=== PATIENT | male | born 1940 | race Caucasian/White ===

== ENCOUNTER 2020-07-23 10:29 | Emergency (ER) | payer OTHER ==
[2020-07-23 12:07] LABS: Absolute Lymphocytes (CBC) 0.7 K/uL (0.7-4.9); Hematocrit 41.7 % (39.6-49.0); Lymphocytes % 14.2 % (15.3-44.8); MPV 11.5 fL (7.6-11.3); RBC Red Blood Cell Count 4.54 M/uL (4.33-5.43)
[2020-07-23 12:15] LABS: Potassium 4.3 mmol/L (3.5-5.1)
--- NOTE | 2020-07-23 12:48 | RAD REPORT ---
EXAM DESCRIPTION: US - Extremity Venous Uni Ltd - 07/23/2020 12:36 pm CLINICAL HISTORY: Pain;Swelling COMPARISON: None. TECHNIQUE: Real-time sonographic evaluation of the right lower extremity deep venous systems was per formed. FINDINGS: Normal compressibility, flow augmentation, phasic flow and spontaneous flow are identified in the right lower extremity common femoral, superficial femoral, popliteal and posterior tibial vei ns. No intraluminal filling defects seen. IMPRESSION: No DVT in the right lower extremity.
--- NOTE | 2020-07-23 13:37 | EDPHYS ---
Physician Documentation [facility] Name: Carlos Osborne Age: 79 yrs Sex: Male : 1940 Arrival Date: 07/23/2020 Time: 10:32 Bed 13 Private MD: ED Physician Kings Ochoa HPI: 07/23 13:30 This 79 yrs old Male presents to ER via Ambulatory with complaints of Leg kdr Swelling. 13:30 The patient presents with decreased range of motion, swelling, tenderness. The kdr complaints affect the lateral aspect of right calf, right ankle, lateral aspect of right foot, right calf, right Achilles, right heel, medial aspect of right calf, medial aspect of right foot, right santoro, anterior aspect of right ankle and dorsum of right foot. Context: The problem was sustained at home, resulted from an unknown cause, Prior history of cellulitis/edema to both lower extremities, the patient can partially bear weight, the patient is able to ambulate, with mild difficulty. Onset: The symptoms/episode began/occurred gradually, 1 week(s) ago. Modifying factors: The symptoms are alleviated by nothing. the symptoms are aggravated by movement, weight bearing. Associated signs and symptoms: The patient has no apparent associated signs or symptoms. Treatment prior to arrival includes: no previous treatment. Severity of symptoms: At their worst the symptoms were mild, moderate, seems similar to prior episodes of cellulitis to the lower extremieis. The patient has experienced similar episodes in the past, a few times. The patient has not recently seen a physician. Historical: - Allergies: 10:37 No Known Allergies; iw - Home Meds: 10:41 finasteride 5 mg oral tab 1 tab once daily [Active]; losartan 100 mg oral tab 1 tab iw once daily [Active]; allopurinol 100 mg Oral tab [Active]; furosemide 80 mg Oral tab 1 tab once daily [Active]; Xarelto 20 mg oral tab 1 tab once daily [Active]; rosuvastatin 20 mg oral tab 1 tab once daily [Active]; omeprazole 40 mg Oral cpDR 1 cap once daily [Active]; - PMHx: 10:39 Back pain; Arthritis; Hypertension; Hyperlipidemia; iw - PSHx: 10:37 Cholecystectomy; iw - Immunization history:: Adult Immunizations not up to date. - Social history:: Smoking status: Patient denies any tobacco usage or history of. ROS: 13:30 Constitutional: Negative for fever, chills, and weight loss, Eyes: Negative for injury, kdr pain, redness, and discharge, ENT: Negative for injury, pain, and discharge, Neck: Negative for injury, pain, and swelling, Cardiovascular: Negative for chest pain, palpitations, and edema, Respiratory: Negative for shortness of breath, cough, wheezing, and pleuritic chest pain, Abdomen/GI: Negative for abdominal pain, nausea, vomiting, diarrhea, and constipation, Back: Negative for injury and pain, : Negative for injury, bleeding, discharge, and swelling, Skin: Negative for injury, rash, and discoloration, Neuro: Negative for headache, weakness, numbness, tingling, and seizure activity. Psych: Negative for depression, anxiety, suicide ideation, homicidal ideation, and hallucinations, Allergy/Immunology: Negative for hives, rash, and allergies, Endocrine: Negative for neck swelling, polydipsia, polyuria, polyphagia, and marked weight changes, Hematologic/Lymphatic: Negative for swollen nodes, abnormal bleeding, and unusual bruising. 13:30 MS/extremity: Positive for pain, swelling, tenderness, warmth, of the right leg and left leg. Exam: 16:58 Constitutional: This is a well developed, well nourished patient who is awake, alert, kdr and in no acute distress. Head/Face: Normocephalic, atraumatic. Eyes: Pupils equal round and reactive to light, extra-ocular motions intact. Lids and lashes normal. Conjunctiva and sclera are non-icteric and not injected. Cornea within normal limits. Periorbital areas with no swelling, redness, or edema. Neck: Trachea midline, no thyromegaly or masses palpated, and no cervical lymphadenopathy. Supple, full range of motion without nuchal rigidity, or vertebral point tenderness. No Meningismus. Chest/axilla: Normal chest wall appearance and motion. Nontender with no deformity. No lesions are appreciated. Cardiovascular: Regular rate and rhythm with a normal S1 and S2. No gallops, murmurs, or rubs. Normal PMI, no JVD. No pulse deficits. Respiratory: Lungs have equal breath sounds bilaterally, clear to auscultation and percussion. No rales, rhonchi or wheezes noted. No increased work of breathing, no retractions or nasal flaring. Abdomen/GI: Soft, non-tender, with normal bowel sounds. No distension or tympany. No guarding or rebound. No evidence of tenderness throughout. Back: No spinal tenderness. No costovertebral tenderness. Full range of motion. Neuro: Awake and alert, GCS 15, oriented to person, place, time, and situation. Cranial nerves II-XII grossly intact. Motor strength 5/5 in all extremities. Sensory grossly intact. Cerebellar exam normal. Normal gait. Psych: Awake, alert, with orientation to person, place and time. Behavior, mood, and affect are within normal limits. 16:58 Musculoskeletal/extremity: Pulses: are normal with no appreciated deficits, Sensation intact. 16:58 Skin: cellulitis, that is moderate, confluent, on the lateral aspect of right calf, right ankle, lateral aspect of right foot, right calf, right Achilles, medial aspect of right calf, right santoro, anterior aspect of right ankle and dorsum of right foot. Vital Signs: 10:36 BP 185 / 59; Pulse 52; Resp 20 S; Temp 99.0; Pulse Ox 98% on R/A; Weight 149.69 kg; iw Height 6 ft. 2 in. (187.96 cm); 11:50 BP 152 / 44; Pulse 42; Resp 17; Pulse Ox 96% on R/A; tw2 12:43 BP 152 / 47; Pulse 45; Resp 17; Pulse Ox 96% on R/A; tw2 13:33 BP 165 / 37; Pulse 42; Resp 18; Pulse Ox 96% on R/A; tw2 10:36 Body Mass Index 42.37 (149.69 kg, 187.96 cm) iw MDM: 13:30 Data reviewed: vital signs, nurses notes, lab test result(s), radiologic studies. kdr Counseling: I had a detailed discussion with the patient and/or guardian regarding: the historical points, exam findings, and any diagnostic results supporting the discharge/admit diagnosis, lab results, radiology results, the need for outpatient follow up. Special discussion: I discussed with the patient/guardian in detail that at this point there is no indication for admission to the hospital. It is understood, however, that if the symptoms persist or worsen the patient needs to return immediately for re-evaluation. 13:37 Patient medically screened. kdr 07/23 11:21 Order name: CBC with Diff; Complete Time: 13:27 sv 07/23 11:21 Order name: Basic Metabolic Panel; Complete Time: 13:27 sv 07/23 11:21 Order name: Blood Culture Adult (2) sv 07/23 11:21 Order name: IV Saline Lock; Complete Time: 12:24 sv 07/23 11:21 Order name: Labs collected and sent; Complete Time: 12:24 sv 07/23 11:59 Order name: US Extremity Venous Unilateral Ltd; Complete Time: 13:27 kdr Administered Medications: No medications were administered Disposition: 07/23/20 13:37 Discharged to Home. Impression: Peripheral edema, Cellulitis to right lower extremity. - Condition is Stable. - Discharge Instructions: Cellulitis, Adult, [id number], Edema, [id number]. - Prescriptions for Amoxicillin 875 mg Oral Tablet - take 1 tablet by ORAL route every 12 hours for 10 days; 20 tablet. - Medication Reconciliation Form, Thank You Letter, Antibiotic Education form. - Follow up: Private Physician; When: 2 - 3 days; Reason: If symptoms return, Further diagnostic work-up, Recheck today's complaints, Continuance of care, Re-evaluation by your physician. - Problem is new. - Symptoms have improved. Signatures: Dispatcher [employer] Jennifer Olivarez RN RN Kings Ochoa MD MD [facility] Hannah Ascencio RN RN iw Louann Crespo RN RN tw2 Corrections: (The following items were deleted from the chart) 14:40 13:37 07/23/2020 13:37 Discharged to Home. Impression: Peripheral edema, Cellulitis to tw2 right lower extremity. Condition is Stable. Forms are Medication Reconciliation Form, Thank You Letter, Antibiotic Education, Prescription Opioid Use. Follow up: Private Physician; When: 2 - 3 days; Reason: If symptoms return, Further diagnostic work-up, Recheck today's complaints, Continuance of care, Re-evaluation by your physician. Problem is new. Symptoms have improved. kdr
--- NOTE | 2020-07-23 13:37 | ER ---
Nurse's Notes [facility] Name: Carlos Osborne Age: 79 yrs Sex: Male : 1940 Arrival Date: 07/23/2020 Time: 10:32 Bed 13 Private MD: Diagnosis: Peripheral edema, Cellulitis to right lower extremity Presentation: 07/23 10:36 Chief complaint: Patient states: has had cellulitis in right leg X 1 week, and wagner feet iw swelling X 1 week. Coronavirus screen: At this time, the client does not indicate any symptoms associated with coronavirus-19. Ebola Screen: Patient negative for fever greater than or equal to 101.5 degrees Fahrenheit, and additional compatible Ebola Virus Disease symptoms Patient denies exposure to infectious person. Patient denies travel to an Ebola-affected area in the 21 days before illness onset. No symptoms or risks identified at this time. Initial Sepsis Screen: Does the patient meet any 2 criteria? No. Patient's initial sepsis screen is negative. Does the patient have a suspected source of infection? No. Patient's initial sepsis screen is negative. Risk Assessment: Do you want to hurt yourself or someone else? Patient reports no desire to harm self or others. Onset of symptoms was July 16, 2020. 10:36 Method Of Arrival: Ambulatory iw 10:36 Acuity: STEFAN 3 iw Historical: - Allergies: 10:37 No Known Allergies; iw - Home Meds: 10:41 finasteride 5 mg oral tab 1 tab once daily [Active]; losartan 100 mg oral tab 1 tab iw once daily [Active]; allopurinol 100 mg Oral tab [Active]; furosemide 80 mg Oral tab 1 tab once daily [Active]; Xarelto 20 mg oral tab 1 tab once daily [Active]; rosuvastatin 20 mg oral tab 1 tab once daily [Active]; omeprazole 40 mg Oral cpDR 1 cap once daily [Active]; - PMHx: 10:39 Back pain; Arthritis; Hypertension; Hyperlipidemia; iw - PSHx: 10:37 Cholecystectomy; iw - Immunization history:: Adult Immunizations not up to date. - Social history:: Smoking status: Patient denies any tobacco usage or history of. Screenin:46 Abuse screen: Denies threats or abuse. Nutritional screening: No deficits noted. tw2 Tuberculosis screening: No symptoms or risk factors identified. Fall Risk Secondary diagnosis (15 points) impaired mobility. Assessment: 10:45 General: Appears in no apparent distress. obese, well groomed, Behavior is calm, tw2 cooperative, appropriate for age. Pain: Complains of pain in right leg and left leg. Neuro: Level of Consciousness is awake, alert, obeys commands, Oriented to person, place, time, situation. Cardiovascular: Capillary refill < 3 seconds Patient's skin is warm and dry. Cardiovascular: Edema is 4+ to left midcalf, left ankle, left foot, right midcalf, right ankle and right foot. Respiratory: Airway is patent Respiratory effort is even, unlabored, Respiratory pattern is regular, symmetrical. GI: No signs and/or symptoms were reported involving the gastrointestinal system. Abdomen is round distended, obese. : No signs and/or symptoms were reported regarding the genitourinary system. EENT: No signs and/or symptoms were reported regarding the EENT system. Derm: No signs and/or symptoms reported regarding the dermatologic system. Derm: Reports increased redness and swelling to b/l LE. Musculoskeletal: Circulation, motion, and sensation intact. Range of motion: intact in all extremities. 11:21 Reassessment: Received VO from Pb SEN for labs. sv 11:45 Reassessment: Patient appears in no apparent distress at this time. No changes from tw2 previously documented assessment. Patient and/or family updated on plan of care and expected duration. Pain level reassessed. Patient is alert, oriented x 3, equal unlabored respirations, skin warm/dry/pink. 12:44 Reassessment: Patient appears in no apparent distress at this time. No changes from tw2 previously documented assessment. Patient and/or family updated on plan of care and expected duration. Pain level reassessed. Patient is alert, oriented x 3, equal unlabored respirations, skin warm/dry/pink. 13:34 Reassessment: Patient appears in no apparent distress at this time. No changes from tw2 previously documented assessment. Patient and/or family updated on plan of care and expected duration. Pain level reassessed. Patient is alert, oriented x 3, equal unlabored respirations, skin warm/dry/pink. 14:40 Reassessment: Patient appears in no apparent distress at this time. No changes from tw2 previously documented assessment. Patient and/or family updated on plan of care and expected duration. Pain level reassessed. Patient is alert, oriented x 3, equal unlabored respirations, skin warm/dry/pink. Vital Signs: 10:36 BP 185 / 59; Pulse 52; Resp 20 S; Temp 99.0; Pulse Ox 98% on R/A; Weight 149.69 kg; iw Height 6 ft. 2 in. (187.96 cm); 11:50 BP 152 / 44; Pulse 42; Resp 17; Pulse Ox 96% on R/A; tw2 12:43 BP 152 / 47; Pulse 45; Resp 17; Pulse Ox 96% on R/A; tw2 13:33 BP 165 / 37; Pulse 42; Resp 18; Pulse Ox 96% on R/A; tw2 10:36 Body Mass Index 42.37 (149.69 kg, 187.96 cm) iw ED Course: 10:32 Patient arrived in ED. ag5 10:37 Triage completed. iw 10:39 Arm band placed on. iw 10:42 Placed in gown. Bed in low position. Call light in reach. Side rails up X2. Pulse ox tw2 on. NIBP on. Warm blanket given. 11:34 Kings Ochoa MD is Attending Physician. kdr 11:45 Initial lab(s) drawn, by ma, sent to lab. First set of blood cultures drawn. Inserted tw2 saline lock: 20 gauge in right antecubital area, using aseptic technique. Blood collected. 11:49 Louann Crespo RN is Primary Nurse. tw2 12:15 Second set of blood cultures drawn. tw2 12:37 US Extremity Venous Unilateral Ltd In Process Unspecified. EDMS 14:40 No provider procedures requiring assistance completed. IV discontinued, intact, tw2 bleeding controlled, No redness/swelling at site. Pressure dressing applied. Administered Medications: No medications were administered Outcome: 13:37 Discharge ordered by . kdr 14:40 Discharged to home ambulatory. tw2 14:40 Condition: stable 14:40 Discharge instructions given to patient, Instructed on discharge instructions, follow up and referral plans. medication usage, Demonstrated understanding of instructions, follow-up care, medications, Prescriptions given X 1. 14:40 Patient left the ED. tw2 Signatures: Dispatcher [facility] Jennifer Rosenthal RN Kings Pretty MD MD kdr Hannah Ascencio RN RN iw Louann Crespo RN RN 2 Geneva Evans 5 Corrections: (The following items were deleted from the chart) 10:38 10:36 BP 185 / 59; Pulse 47bpm; Resp 20bpm; Spontaneous; Pulse Ox 94% RA; Temp 99.0F; iw 149.69 kg; Height 6 ft. 2 in.; BMI: 42.3; iw
[2020-07-24 08:30] VITALS: TEMP 99
[2020-07-24 08:31] VITALS: O2SAT 96
[2020-07-24 08:34] VITALS: BP 165/37
== END 2020-07-23 14:40 | disposition home or self-care (01) ==
LOC: ER 10:29
DX: L03.115 Cellulitis of right lower limb (principal); I10 Essential (primary) hypertension; E78.5 Hyperlipidemia, unspecified; Z79.01 Long term (current) use of anticoagulants
CPT/HCPCS: 36415; 80048; 85025; 87040; 93971; 99284

== ENCOUNTER 2022-09-02 09:29 | Inpatient (IN) | payer OTHER ==
--- OUTSIDE RECORDS SUMMARY | 2022-09-02 09:33 | XMS REPORT | Continuity of Care Document ---
:1940 Author Organization [facility] t Address [address] [id number] Care Team Providers Name Role Phone Harry Moar Attending Clinician Unavailable MIRLANDE FIGUEROA Attending Clinician Unavailable LAB90 Attending Clinician Unavailable JAVIER ABERNATHY Attending Clinician Unavailable BEATRIZ ALVAREZ Attending Clinician Unavailable Beatriz Alvarez MD Attending Clinician [phone] Jimmy-Mbayo_A_AH Attending Clinician Unavailable Jimmy-Mbayo_A_AH Admitting Clinician Unavailable Payers Payer Name Policy Type Policy Number Effective Date Expiration Date S susana [facility] 7 [id number] 2022 CLASSIC NO 00:00:00 PREMIUM R2T [place] [id number] 2020 [facility] 00:[facility]:[place] [id number] 2020 [facility] [place]:[facility]:[place] [id number] 2020 [facility] 00:[facility] [place] [id number] 2020 [facility] 00:[facility] - [facility] [id number] 2019 - [employer] 00:00:00 (MEDICARE REPLACEMENT/ADV ANTAGE - HMO) Problems Condition Condition Condition Status Onset Resolution Last Treating Co mments Source Name Details Category Date Date Treatment Clinician Date 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 8-05 Seyb old hyperplasi hyperplasi 00:00: - a without a without 00 Exte rna lower lower l urinary urinary tract tract symptoms symptoms Gout Gout Disease Active Sherie 8-05 Seybold 00:00: - 00 Externa l Hyperlipid Hyperlipid Disease Active Gregg kim emia emia 805 Seybold 00:00: - 00 Externa l 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 8-05 Seybold 00:00: - 00 Externa l Primary Primary Disease Active Sherie hypertensi hypertensi 8-05 Se ybold on on 00:00: - 00 Externa l 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 805 Seybold kidney kidney 00:00: - disease disease 00 Externa l PAF PAF Disease Active Sherie (paroxysma (paroxysma 805 Se ybold l atrial l atrial 00:00: - fibrillati fibrillati 00 Ex terna on) on) l Osteoarthr Osteoarthr Disease Active Gregg kim itis itis 805 Seybold 00:00: - 00 Externa l Chronic Chronic Disease Active Sherie midline midline 8-05 Seybold low back low back 00:00: - pain pain 00 Externa l 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 8-05 Seybold dermatitis dermatitis 00:00: - of both of both 00 Externa lower lower l extremitie extremitie s s [id number] Primary Problem Active Commo n osteoarthr Spirit itis - [facility] involving [facility] [id number] Chronic Problem Active Common gout of [id number] loc w Problem Active Com mon urin Spirit obs/LUTS - [facility] [id number] Other Problem Active Common chronic Spirit pain - [facility] [id number] Mixed Problem Active Common hyperlipid Spirit emia - [facility] Allergies, Adverse Reactions, Alerts Allergy Allergy Status Severity Reaction(s) Onset Inactive Treating Comm ents Source Name Type Date Date Clinician Diphenhy Propensi Active Other Sherie earl ty to 4 reaction( Seybol d adverse 00:00: s): - reaction 00 Unknown Externa s l Social History Social Habit Start Date Stop Date Quantity Comments Source History of [facility] - Tobacco Use [facility] Alcohol intake 2022-08-26 2022-08-26 Lifetime Sherie Cottoy bold - 00:00:00 00:00:00 non-drinker External (finding) Tobacco use and 2022-03-06 2022-03-06 Smokeless tobacco Ke néstor Seybold - exposure 00:00:00 00:00:00 non-user External Sex Ass[birth year] At [birth year] Sherie Cotto ybold - 00:00:00 00:00:00 External Smoking Status Start Date Stop Date Source Never smoked tobacco Sherie Esposito old - External Medications Ordered Filled Start Stop Current Ordering Indication Dosage Frequency Signature Comments Components Source Medication Medication Date Date Medication? Clinician (SIG) Name Name Benzonatate Yes [id number] 100mg Q.[id number] Take 1 Sherie 100 MG oral 1-25 [id number] capsule Seybold Capsule 00:00: 3D (100 mg - 00 total) by Externa mouth 3 l times daily as needed for cough FLUTICASONE Yes [id number] 50ug Use 1 K elsey PROPIONATE, 1-25 spray (50 Sey bold NASAL, 50 00:00: mcg total) - MCG/ACT 00 in each Externa nasal nostril l Suspension daily Azithromyci Yes [id number] Take 2 Sherie n 250 MG 1-25 tablets by Seybo ld oral Tablet 00:00: mouth on - 00 day 1 then Externa 1 tablet l by mouth daily for 4 days thereafter . Mupirocin 2021-08 Yes [id number] Apply 1 K elsey (BACTROBAN) 08-08 applicatio Se ybold 2 % apply 00:00: n - externally 00 topically Exte rna Ointment 3 times l daily Mupirocin 2021-08 Yes [id number] Apply 1 K elsey (BACTROBAN) 07 applicatio Se ybold 2 % apply 00:00: n - externally 00 topically Exte rna Ointment 3 times l daily Amoxicillin 2021-08- Yes [id number] 1{tbl} Take 1 Sherie -Pot 08-08 [id number] tablet by Billy Clavulanate 00:00: 05:59 mouth 2 - 875-125 MG 00 :00 times Externa oral Tablet daily for l 14 days Allopurinol Yes [id number] 100mg Take 1 Sherie 100 MG oral 9-15 tablet Seybol d Tablet 00:00: (100 mg - 00 total) by Externa mouth l daily Finasteride Yes [id number] 5mg Take 1 Sherie 5 MG oral 9-15 tablet (5 Seybo ld Tablet 00:00: mg total) - 00 by mouth Externa daily l Rivaroxaban Yes [id number] 20mg Take 1 Sherie (Xarelto) 9-15 tablet (20 Seyb old 20 MG oral 00:00: mg total) - Tablet 00 by mouth Externa daily with l food Olmesartan- Yes 1{tbl} Take 1 Ke lsey amLODIPine- 9-15 tablet by Matilda johnson HCTZ 00:00: mouth - 40-10-12.5 00 daily Externa MG oral l Tablet Oxybutynin Yes [id number] 5mg Take 1 Sherie Chloride 5 9-15 tablet (5 Seyb old MG oral 00:00: mg total) - TABLET SR 00 by mouth 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 a 24 HR daily l Rosuvastati Yes [id number] 20mg Take 1 Sherie n Calcium 9-15 tablet (20 Seyb old 20 MG oral 00:00: mg total) - Tablet 00 by mouth Externa daily l Allopurinol Yes [id number] 100mg Take 1 Sherie 100 MG oral 9-15 tablet Seybol d Tablet 00:00: (100 mg - 00 total) by Externa mouth l daily Finasteride Yes [id number] 5mg Take 1 Sherie 5 MG oral 9-15 tablet (5 Seybo ld Tablet 00:00: mg total) - 00 by mouth Externa daily l Rivaroxaban Yes [id number] 20mg Take 1 Sherie (Xarelto) 9-15 tablet (20 Seyb old 20 MG oral 00:00: mg total) - Tablet 00 by mouth Externa daily with l food Olmesartan- Yes 1{tbl} Take 1 Ke latoshaey amLODIPine- 9-15 tablet by Matilda alex HCTZ 00:00: mouth - 40-10-12.5 00 daily Externa MG oral l Tablet Oxybutynin Yes [id number] 5mg Take 1 Sherie Chloride 5 9-15 tablet (5 Seyb old MG oral 00:00: mg total) - TABLET SR 00 by mouth 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 a 24 HR daily l Rosuvastati Yes [id number] 20mg Take 1 Sherie n Calcium 9-15 tablet (20 Seyb old 20 MG oral 00:00: mg total) - Tablet 00 by mouth Externa daily l Amoxicillin Amoxicillin 2020-08- No 1{table BID Amoxicilli -Pot -Pot 0-18 10-28 t} n-Pot Clavulanate Clavulanate 00:00: 00:00 Clavulanat 875-125 MG 875-125 MG 00 :00 e 875-125 MG Finasteride Finasteride No 1{table QD Finasterid 5 MG 5 MG t} e 5 MG Rosuvastati Rosuvastati No 1{table QD Rosuvastat n Calcium n Calcium t} in Calcium 20 MG 20 MG 20 MG Allopurinol Allopurinol No 1{table QD Allopurino 100 MG 100 MG t} l 100 MG Rosuvastati Rosuvastati No Rosuvastat n Calcium n Calcium in Calcium 20 MG 20 MG 20 MG Allopurinol Allopurinol No Allopurino 100 MG 100 MG l 100 MG Olmesartan- Olmesartan- No 1{table QD Olmesartan amLODIPine- amLODIPine- t} -amLODIPin HCTZ HCTZ e-HCTZ 40-10-12.5 40-10-12.5 40-10-12.5 MG MG MG Xarelto 20 Xarelto 20 No 1{table QD Xarelto 20 MG MG t_with_ MG food} Oxybutynin Oxybutynin No 1{table QD Oxybutynin Chloride ER Chloride ER t} Chloride 5 MG 5 MG ER 5 MG Finasteride Finasteride No Finasterid 5 MG 5 MG e 5 MG Olmesartan- Olmesartan- No Olmesartan amLODIPine- amLODIPine- -amLODIPin HCTZ HCTZ e-HCTZ 40-10-12.5 40-10-12.5 40-10-12.5 MG MG MG Finasteride Finasteride No 1{table QD Finasterid 5 MG 5 MG t} e 5 MG Rosuvastati Rosuvastati No 1{table QD Rosuvastat n Calcium n Calcium t} in Calcium 20 MG 20 MG 20 MG Allopurinol Allopurinol No 1{table QD Allopurino 100 MG 100 MG t} l 100 MG Rosuvastati Rosuvastati No Rosuvastat n Calcium n Calcium in Calcium 20 MG 20 MG 20 MG Allopurinol Allopurinol No Allopurino 100 MG 100 MG l 100 MG Olmesartan- Olmesartan- No 1{table QD Olmesartan amLODIPine- amLODIPine- t} -amLODIPin HCTZ HCTZ e-HCTZ 40-10-12.5 40-10-12.5 40-10-12.5 MG MG MG Xarelto 20 Xarelto 20 No 1{table QD Xarelto 20 MG MG t_with_ MG food} Oxybutynin Oxybutynin No 1{table QD Oxybutynin Chloride ER Chloride ER t} Chloride 5 MG 5 MG ER 5 MG Finasteride Finasteride No Finasterid 5 MG 5 MG e 5 MG Olmesartan- Olmesartan- No Olmesartan amLODIPine- amLODIPine- -amLODIPin HCTZ HCTZ e-HCTZ 40-10-12.5 40-10-12.5 40-10-12.5 MG MG MG Xarelto 20 Xarelto 20 No 1{table QD Xarelto 20 MG MG t_with_ MG food} Rosuvastati Rosuvastati No 1{table QD Rosuvastat n Calcium n Calcium t} in Calcium 20 MG 20 MG 20 MG Ibuprofen Ibuprofen No Ibuprofen Olmesartan- Olmesartan- No 1{table QD Olmesartan amLODIPine- amLODIPine- t} -amLODIPin HCTZ HCTZ e-HCTZ 40-10-12.5 40-10-12.5 40-10-12.5 MG MG MG Olmesartan- Olmesartan- No Olmesartan amLODIPine- amLODIPine- -amLODIPin HCTZ HCTZ e-HCTZ 40-5-12.5 40-5-12.5 40-5-12.5 MG MG MG Allopurinol Allopurinol No Allopurino 100 MG 100 MG l 100 MG Allopurinol Allopurinol No 1{table QD Allopurino 100 MG 100 MG t} l 100 MG Finasteride Finasteride No 1{table QD Finasterid 5 MG 5 MG t} e 5 MG Olmesartan- Olmesartan- No Olmesartan amLODIPine- amLODIPine- -amLODIPin HCTZ HCTZ e-HCTZ 40-10-12.5 40-10-12.5 40-10-12.5 MG MG MG Finasteride Finasteride No Finasterid 5 MG 5 MG e 5 MG Rosuvastati Rosuvastati No Rosuvastat n Calcium n Calcium in Calcium 20 MG 20 MG 20 MG Oxybutynin Oxybutynin No 1{table QD Oxybutynin Chloride ER Chloride ER t} Chloride 5 MG 5 MG ER 5 MG Finasteride Finasteride No 1{table QD Finasterid 5 MG 5 MG t} e 5 MG Olmesartan- Olmesartan- No 1{table QD Olmesartan amLODIPine- amLODIPine- t} -amLODIPin HCTZ HCTZ e-HCTZ 40-10-12.5 40-10-12.5 40-10-12.5 MG MG MG Rosuvastati Rosuvastati No 1{table QD Rosuvastat n Calcium n Calcium t} in Calcium 20 MG 20 MG 20 MG Oxybutynin Oxybutynin No 1{table QD Oxybutynin Chloride ER Chloride ER t} Chloride 5 MG 5 MG ER 5 MG Xarelto 20 Xarelto 20 No 1{table QD Xarelto 20 MG MG t_with_ MG food} Allopurinol Allopurinol No 1{table QD Allopurino 100 MG 100 MG t} l 100 MG Finasteride Finasteride No 1{table QD Finasterid 5 MG 5 MG t} e 5 MG Olmesartan- Olmesartan- No 1{table QD Olmesartan amLODIPine- amLODIPine- t} -amLODIPin HCTZ HCTZ e-HCTZ 40-10-12.5 40-10-12.5 40-10-12.5 MG MG MG Rosuvastati Rosuvastati No 1{table QD Rosuvastat n Calcium n Calcium t} in Calcium 20 MG 20 MG 20 MG Oxybutynin Oxybutynin No 1{table QD Oxybutynin Chloride ER Chloride ER t} Chloride 5 MG 5 MG ER 5 MG Xarelto 20 Xarelto 20 No 1{table QD Xarelto 20 MG MG t_with_ MG food} Allopurinol Allopurinol No 1{table QD Allopurino 100 MG 100 MG t} l 100 MG Finasteride Finasteride No 1{table QD Finasterid 5 MG 5 MG t} e 5 MG Olmesartan- Olmesartan- No 1{table QD Olmesartan amLODIPine- amLODIPine- t} -amLODIPin HCTZ HCTZ e-HCTZ 40-10-12.5 40-10-12.5 40-10-12.5 MG MG MG Rosuvastati Rosuvastati No 1{table QD Rosuvastat n Calcium n Calcium t} in Calcium 20 MG 20 MG 20 MG Oxybutynin Oxybutynin No 1{table QD Oxybutynin Chloride ER Chloride ER t} Chloride 5 MG 5 MG ER 5 MG Xarelto 20 Xarelto 20 No 1{table QD Xarelto 20 MG MG t_with_ MG food} Allopurinol Allopurinol No 1{table QD Allopurino 100 MG 100 MG t} l 100 MG Finasteride Finasteride No Finasterid 5 MG 5 MG e 5 MG Allopurinol Allopurinol No Allopurino 100 MG 100 MG l 100 MG Rosuvastati Rosuvastati No Rosuvastat n Calcium n Calcium in Calcium 20 MG 20 MG 20 MG Xarelto 20 Xarelto 20 No 1{table QD Xarelto 20 MG MG t_with_ MG food} Olmesartan- Olmesartan- No 1{table QD Olmesartan amLODIPine- amLODIPine- t} -amLODIPin HCTZ HCTZ e-HCTZ 40-10-12.5 40-10-12.5 40-10-12.5 MG MG MG Oxybutynin Oxybutynin 2021- No 1{table QD Oxybutynin Chloride ER Chloride ER 01-30 t} Chloride 5 MG 5 MG 00:00 ER 5 MG :00 Vital Signs Vital Name Observation Time Observation Value Comments Source Systolic blood 2022-08-26 20:05:00 159 mm[Hg] Sherie Seybold - pressure External Diastolic blood 2022-08-26 20:05:00 71 mm[Hg] Roelse y Seybold - pressure External Heart rate 2022-08-26 20:05:00 46 /min Sherie Barboza eybold - External Body temperature 2022-08-26 20:05:00 37 Amira Meri ey Seybold - External Respiratory rate 2022-08-26 20:05:00 14 /min Meri ey Seybold - External Body height 2022-08-26 20:05:00 188 cm Sherie Barboza eybold - External Body weight 2022-08-26 20:05:00 118.389 kg Sherie Barboza eybold - External BMI 2022-08-26 20:05:00 33.51 kg/m2 Sherie Barboza eybold - External Oxygen saturation in 2022-08-26 20:05:00 95 /min Sherie Seybold - Arterial blood by External Pulse oximetry Systolic blood 2022-06-08 15:59:00 138 mm[Hg] Sherie Seybold - pressure External Diastolic blood 2022-06-08 15:59:00 54 mm[Hg] Roelse y Seybold - pressure External Heart rate 2022-06-08 15:59:00 66 /min Sherie Barboza eybold - External Body temperature 2022-06-08 15:59:00 37 Amira Meri fuentes Seybold - External Respiratory rate 2022-06-08 15:59:00 14 /min Meri fuentes Seybold - External Body height 2022-06-08 15:59:00 188 cm Sherie Barboza eybold - External Body weight 2022-06-08 15:59:00 131.543 kg Sherie Barboza eybold - External BMI 2022-06-08 15:59:00 37.23 kg/m2 Sherie Barboza eybold - External Oxygen saturation in 2022-06-08 15:59:00 99 /min Sherie Cottoybold - Arterial blood by External Pulse oximetry height 2021-11-26 10:30:00 74 [in_i] [facility] weight 2021-11-26 10:30:00 294.6 [lb_av] Common [facility] temperature 2021-11-26 10:30:00 97.3 [degF] Common S pirit [facility] bmi 2021-11-26 10:30:00 37.82 kg/m2 Common S pirit [facility] oximetry 2021-11-26 10:30:00 95 % Common S pirit [facility] respiratory rate 2021-11-26 10:30:00 16 /min Comm on [facility] blood pressure 2021-11-26 10:30:00 152 mm[Hg] [facility] - systolic [facility] blood pressure 2021-11-26 10:30:00 87 mm[Hg] [facility] - diastolic [facility] height 2021-08-26 10:00:00 74 [in_i] Common S [facility] weight 2021-08-26 10:00:00 283.9 [lb_av] [facility] temperature 2021-08-26 10:00:00 97.3 [degF] [facility] 2021-08-26 10:00:00 36.45 kg/m2 [facility] 2021-08-26 10:00:00 98 % [facility] S [facility] respiratory rate 2021-08-26 10:00:00 17 /min Comm on [facility] blood pressure 2021-08-26 10:00:00 148 mm[Hg] [facility] - systolic [facility] blood pressure 2021-08-26 10:00:00 76 mm[Hg] [facility] - diastolic [facility] height 2021-08-26 10:10:00 74 [in_i] [facility] 2021-08-26 10:10:00 283.9 [lb_av] [facility] temperature 2021-08-26 10:10:00 97.3 [degF] Common S pirit [facility] bmi 2021-08-26 10:10:00 36.45 kg/m2 Common S [facility] oximetry 2021-08-26 10:10:00 98 % Common S [facility] respiratory rate 2021-08-26 10:10:00 17 /min Comm on [facility] blood pressure 2021-08-26 10:10:00 148 mm[Hg] Common [facility] - systolic [facility] blood pressure 2021-08-26 10:10:00 76 mm[Hg] Common [facility] - diastolic [facility] height 2021-05-19 11:20:00 74 [in_i] Common S [facility] weight 2021-05-19 11:20:00 303.4 [lb_av] [facility] temperature 2021-05-19 11:20:00 97.7 [degF] [facility] bmi 2021-05-19 11:20:00 38.95 kg/m2 [facility] S [facility] oximetry 2021-05-19 11:20:00 92 % Common [facility] respiratory rate 2021-05-19 11:20:00 17 /min Comm on [facility] blood pressure 2021-05-19 11:20:00 145 mm[Hg] Common [facility] - systolic [facility] blood pressure 2021-05-19 11:20:00 65 mm[Hg] Common [facility] - diastolic [facility] height 2021-02-18 10:30:00 74 [in_i] Common S pirit [facility] weight 2021-02-18 10:30:00 302.4 [lb_av] [facility] temperature 2021-02-18 10:30:00 98.0 [degF] [facility] bmi 2021-02-18 10:30:00 38.82 kg/m2 Common S [facility] oximetry 2021-02-18 10:30:00 95 % Common S pirit [facility] respiratory rate 2021-02-18 10:30:00 19 /min Comm on [facility] blood pressure 2021-02-18 10:30:00 146 mm[Hg] Common [facility] - systolic [facility] blood pressure 2021-02-18 10:30:00 69 mm[Hg] Common [facility] - diastolic [facility] Procedures This patient has no known procedures. Encounters Start End Encounter Admission Attending Care Care Encounter Source Date/Time Date/Time Type Type Clinicians Facility Department ID 2022-03-25 Outpatient Mora, STLMLC STLMLC [id number] Common 10:30:02 Harry [facility] 2022-03-24 Outpatient Mora, STLMLC STLMLC [id number] Common 14:23:01 Harry [facility] 2021-11-27 Outpatient Mora, STLMLC STLMLC [id number] Common 09:17:01 Harry [facility] 2021-08-27 Outpatient Mora, STLMLC STLMLC [id number] Common 14:39:49 Harry [facility] 2021-08-27 Outpatient Mora, STLMLC STLMLC [id number] Common 13:28:02 Harry [facility] 2021-08-27 Outpatient Mora, STLMLC STLMLC [id number] Common 13:27:44 Harry 24761 [facility] 2021-08-27 Outpatient Mora, STLMLC STLMLC [id number] Common 12:54:44 Harry 36509 [facility] 2022-09-02 2022-09-02 Outpatient SHERIE FIGUEROA [id number] Sherie 13:00:00 13:00:00 MIRLANDE johnson 2022-09-02 2022-09-02 Outpatient SHERIE FIGUEROA [id number] Sherie 00:00:00 00:00:00 MIRLANDE johnson 2022-08-31 2022-08-31 Outpatient SHERIE FIGUEROA [id number] Sherie 00:00:00 00:00:00 MIRLANDE Seybol d 2022-08-26 2022-08-26 Outpatient LAB90 SHERIE HARO [id number] Sherie 14:45:00 14:45:00 Seybol d 2022-08-26 2022-08-26 Outpatient SHERIE ABERNATHY [id number] Sherie 14:00:00 14:00:00 JAVIER Seybol d 2022-06-08 2022-06-08 Outpatient SHERIE ALVAREZ [id number] Sherie 10:45:00 10:45:00 BEATRIZ Seybol d 2022-06-05 2022-06-05 Outpatient SHERIE ALVAREZ [id number] Sherie 10:00:00 10:00:00 BEATRIZ Seybol d 2022-05-29 2022-05-29 Outpatient SHERIE AVLAREZ [id number] Sherie 00:00:00 00:00:00 BEATRIZ Seybol d 2022-03-06 2022-03-06 Outpatient LAB90 SHERIE HARO [id number] Sherie 12:00:00 12:00:00 Seybol d 2022-03-06 2022-03-06 Office Gene Alvarez [id number] Sherie 11:00:00 11:45:00 Visit Beatriz Fernandez [id number] Se tiffanie Kauffman [id number] 2022-03-02 2022-03-02 Outpatient SHERIE ALVAREZ [id number] Sherie 10:45:00 10:45:00 BEATRIZ Seybol d 2022-02-26 2022-02-26 Outpatient SHERIE ALVAREZ [id number] Sherie 11:00:00 11:00:00 BEATRIZ Seybol d 2021-11-26 2021-11-26 OFFICE STLMLC STLMLC [id number] Co mmon 00:00:00 00:00:00 VISIT Alonzo ESTAB PT - [facility]I LEVEL 4 [facility] 2021-08-26 2021-08-26 OFFICE STLMLC STLMLC [id number] Co mmon 00:00:00 00:00:00 VISIT Spirit ESTAB PT - [facility] LEVEL 4 [facility] 2021-08-26 2021-08-26 SUB ANNUAL STLMLC STLMLC [id number] Common 00:00:00 00:00:00 MCR Spirit WELLNESS - [facility] VISIT [facility] 2021-06-02 2021-06-02 (TEL) STLMLC STLMLC [id number] Co mmon 00:00:00 00:00:00 Spirit - [facility] 2021-05-19 2021-05-19 OFFICE STLMLC STLMLC [id number] Co mmon 00:00:00 00:00:00 VISIT Spirit ESTAB PT - [facility] LEVEL 4 [facility] 2021-02-20 2021-02-20 (TEL) STLMLC STLMLC [id number] Co mmon 00:00:00 00:00:00 Spirit - [facility] 2021-02-18 2021-02-18 OFFICE STLMLC STLMLC [id number] Co mmon 00:00:00 00:00:00 VISIT Spirit ESTAB PT - [facility] LEVEL 4 [facility] 2020-11-20 2020-11-20 Outpatient STLMLC STLMLC [id number] Common 00:00:00 00:00:00 [facility] 2019-10-12 2019-10-12 Outpatient Jimmy-Mbayo VFP VFP [phone] [facility] 11:38:00 11:38:00 _A_AH [id number] Family Practic e 2019-10-12 2019-10-12 Outpatient Jimmy-Mbayo VFP VFP [id number] [facility] 11:38:00 11:38:00 _A_AH [id number] Family Practic e 2019-10-12 2019-10-12 Outpatient Jimmy-Mbayo VFP VFP [phone] [place] 11:38:00 11:38:00 _A_AH [id number] Family Practic e 2019-10-12 2019-10-12 Outpatient Jimmy-Mbayo VFP VFP [id number] [place] 11:38:00 11:38:00 _A_AH [id number] Family Practic e 2019-09-20 2019-09-20 Outpatient Jimmy-Mbayo VFP VFP [phone] [place] [address] 07:22:00 07:22:00 _A_ [id number] Family Practic e Results This patient has no known results.
[2022-09-02 10:06] LABS: Absolute Lymphocytes (CBC) 0.4 K/uL (0.7-4.9); Hematocrit 44.1 % (39.6-49.0); Lymphocytes % 3.9 % (15.3-44.8); MCV 86.4 fL (80-100); MPV 11.9 fL (7.6-11.3); RBC Red Blood Cell Count 5.11 M/uL (4.33-5.43)
[2022-09-02 10:24] LABS: Potassium 3.8 mmol/L (3.5-5.1)
[2022-09-02 10:26] LABS: Troponin High Sensitivity 99.8 pg/mL (<58.9)
--- NOTE | 2022-09-02 10:34 | ER ---
Nurse's Notes [facility] Name: Carlos Osborne Age: 81 yrs Sex: Male : 1940 Arrival Date: 09/02/2022 Time: 09:37 Bed 6 Private MD: Diagnosis: Weakness;Subsequent non-ST elevation (NSTEMI) myocardial infarction Presentation: 09/02 09:37 Chief complaint: Patient states: Not eating well, lethargic and weak for 2 weeks. Covid ll1 positive for 2 weeks. Denies N/V/D. + fever at home. Family reports cellulitis of the legs is slowly getting worse now. EMS states: BP 151/51, L BBB rate 45-50. Temp 100.7 axillary. 20 G R hand started, 250 ml NS bolus given. Initial O2 90% RA, 100% on 2 L NC. Tylenol 325 MG PO given en route. Coronavirus screen: Vaccine status: Patient reports being unvaccinated. Client denies travel out of the [place] in the last 14 days. fatigue, fever, Client presents with at least one sign or symptom that may indicate coronavirus-19. Standard/surgical mask placed on the client. Ebola Screen: Patient denies travel to an Ebola-affected area in the 21 days before illness onset. Initial Sepsis Screen: Does the patient meet any 2 criteria? Does the patient have a suspected source of infection? Yes: Productive cough/pneumonia. Risk Assessment: Do you want to hurt yourself or someone else? Patient reports no desire to harm self or others. Onset of symptoms was August 17, 2022. 09:37 Method Of Arrival: EMS ll1 09:37 Acuity: STEFAN 2 ll1 Triage Assessment: 09:38 General: Appears ill, Behavior is calm, cooperative, appropriate for age. General:. ll1 Pain: Denies pain. Neuro: Reports weakness. Respiratory: Reports cough that is. GI: Reports no appetite. Musculoskeletal: Circulation, motion, and sensation intact. Capillary refill < 3 seconds, Reports weakness in generalized. 12:00 General: Appears in no apparent distress. Behavior is calm, cooperative, appropriate eh3 for age. Pain: Denies pain. Neuro: Level of Consciousness is awake, alert, obeys commands, Oriented to person, place, time, situation, Reports weakness. Cardiovascular: Capillary refill < 3 seconds Patient's skin is warm and dry. Rhythm is sinus bradycardia. Respiratory: Reports cough that is non-productive, persistent Airway is patent Respiratory effort is even, unlabored, Respiratory pattern is regular, symmetrical. GI: Abdomen is round non-distended, Reports lack of appetite. : No signs and/or symptoms were reported regarding the genitourinary system. Derm: No signs and/or symptoms reported regarding the dermatologic system. Skin is pink, warm \T\ dry. Musculoskeletal: Circulation, motion, and sensation intact. Historical: - Allergies: 09:37 No Known Drug Allergies; ll1 - Home Meds: 14:08 allopurinol 100 mg Oral tab [Active]; finasteride 5 mg Oral tab 1 tab once daily eh3 [Active]; furosemide 80 mg Oral tab 1 tab once daily [Active]; losartan 100 mg Oral tab 1 tab once daily [Active]; omeprazole 40 mg Oral cpDR 1 cap once daily [Active]; rosuvastatin 20 mg Oral tab 1 tab once daily [Active]; Xarelto 20 mg Oral tab 1 tab once daily [Active]; - PMHx: 09:37 Arthritis; Back pain; Hyperlipidemia; Hypertension; ll1 - Immunization history:: Client reports having NOT received the Covid vaccine. - Social history:: Smoking status: Patient denies any tobacco usage or history of. Screenin:40 [facility] [place] ED Fall Risk Assessment (Adult) Confusion or Disorientation Yes (5 pts) ll1 Impaired Gait Yes (1 pt) Mobility Assist Device Used Yes (1 pt) Score/Fall Risk Level 3 or more points = High Risk Oriented to surroundings, Maintained a safe environment, Educated pt \T\ family on fall prevention, incl call for assistance when getting out of bed, Hourly rounding (assess needs \T\ fall precautionary measures) done, Used ambulatory aids as needed (educated on \T\ assisted with), Offered frequent toileting (1:1 observation). Abuse screen: Denies threats or abuse. Nutritional screening: No deficits noted. Tuberculosis screening: No symptoms or risk factors identified. Assessment: 10:26 Reassessment: Patient appears in no apparent distress at this time. No changes from ll1 previously documented assessment. Patient and/or family updated on plan of care and expected duration. Pain level reassessed. Patient is alert, oriented x 3, equal unlabored respirations, skin warm/dry/pink. 11:25 Reassessment: No changes from previously documented assessment. Patient and/or family ll1 updated on plan of care and expected duration. Pain level reassessed. Patient is alert, oriented x 3, equal unlabored respirations, skin warm/dry/pink. Son Carlos Osborne [phone] or [phone]. 12:00 General: Appears in no apparent distress. Behavior is calm, cooperative, appropriate eh3 for age. Pain: Denies pain. Neuro: Level of Consciousness is awake, alert, obeys commands, Oriented to person, place, time, situation. Neuro: Reports weakness. Cardiovascular: Capillary refill < 3 seconds Patient's skin is warm and dry. Respiratory: Airway is patent Respiratory effort is even, unlabored, Respiratory pattern is regular, symmetrical. GI: Abdomen is round non-distended, Reports lack of appetite. : No signs and/or symptoms were reported regarding the genitourinary system. EENT: No signs and/or symptoms were reported regarding the EENT system. Derm: 13:00 Reassessment: Patient appears in no apparent distress at this time. Patient and/or eh3 family updated on plan of care and expected duration. Pain level reassessed. Patient is alert, oriented x 3, equal unlabored respirations, skin warm/dry/pink. 13:58 Reassessment: Attempted to call report to 4th floor, nurse busy, will call back. eh3 14:00 Reassessment: Patient appears in no apparent distress at this time. Patient and/or 3 family updated on plan of care and expected duration. Pain level reassessed. Patient is alert, oriented x 3, equal unlabored respirations, skin warm/dry/pink. Vital Signs: 09:37 BP 150 / 53; Pulse 49; Resp 22; Temp 100.1(A); Pulse Ox 99% ; Weight 129.27 kg; Height ll1 6 ft. 2 in. (187.96 cm); Pain 0/10; 11:25 BP 131 / 42; Pulse 44; Resp 21; Pulse Ox 99% on 2 lpm NC; ll1 12:00 BP 111 / 40; Pulse 42; Resp 22; Pulse Ox 98% on 2 lpm NC; eh3 12:30 BP 141 / 51; Pulse 41; Resp 19; Pulse Ox 99% on 2 lpm NC; eh3 13:00 BP 139 / 45; Pulse 41; Resp 15; Pulse Ox 98% on 2 lpm NC; eh3 13:30 BP 142 / 46; Pulse 41; Resp 18; Pulse Ox 99% on 2 lpm NC; eh3 14:00 BP 126 / 47; Pulse 42; Resp 17; Pulse Ox 98% on 2 lpm NC; eh3 09:37 Body Mass Index 36.59 (129.27 kg, 187.96 cm) ll1 ED Course: 09:37 Patient arrived in ED. ph 09:37 Ten Guzman RN is Primary Nurse. ll1 09:37 Kings Ochoa MD is Attending Physician. kdr 09:40 Triage completed. ll1 09:40 Arm band placed on Patient placed in an exam room, on a stretcher. ll1 09:40 Patient has correct armband on for positive identification. Bed in low position. Call ll1 light in reach. Side rails up X2. Client placed on continuous cardiac and pulse oximetry monitoring. NIBP monitoring applied. bleach liquor maker on. 09:40 Maintain EMS IV. Dressing intact. Site clean \T\ dry. Gauge \T\ site: 20 G R hand. ll 1 10:01 EKG done, by ED staff, reviewed by Kings Ochoa MD. em1 10:28 XRAY Chest (1 view) In Process Unspecified. EDMS 10:33 Darek Nieves MD is Hospitalizing Provider. kdr 11:10 Tib Fib Right XRAY In Process Unspecified. EDMS 11:15 Second set of blood cultures drawn by nh. ll1 11:26 No provider procedures requiring assistance completed. ll1 12:00 Carmen Calderon, SUNNY is Primary Nurse. Primary Nurse role handed off by Ten Guzman, SUNNY 3 14:39 Patient admitted, IV remains in place. eh3 Administered Medications: 10:23 Drug: NS 0.9% 500 ml Route: IV; Rate: bolus; Site: right hand; ll1 11:05 Follow up: Response: No adverse reaction; IV Status: Completed infusion; IV Intake: ll1 1000ml 10:47 CANCELLED (Duplicate Order): foLIC Acid 1 mg PO once kdr 10:47 CANCELLED (Duplicate Order): Aspirin 81 mg PO once kdr 11:30 Drug: Rocephin - (cefTRIAXone) 1 grams Route: IVPB; Infused Over: 30 mins; Site: right ll1 hand; 12:00 Follow up: Response: No adverse reaction; IV Status: Completed infusion; IV Intake: [id number] Medication: 09:41 VIS not applicable for this client. ll1 Intake: 11:05 IV: 1000ml; Total: 1000ml. ll1 12:00 IV: 50ml; Total: 1050ml. 3 Outcome: 10:34 Decision to Hospitalize by Provider. kdr 14:39 Admitted to Tele accompanied by tech, via stretcher, room 427, with oxygen, Report 3 called to Kori 14:39 Condition: stable 14:39 Instructed on the need for admit. 14:39 Patient left the ED. 3 Signatures: Dispatcher [employer] EDMS Kings Ochoa MD MD kdr Martinez, Eric 1 Yanira Calderon RN RN Ten Guzman RN RN [facility] Carmen Calderon RN RN [facility] Corrections: (The following items were deleted from the chart) 09:43 09:37 Chief complaint: Patient states: Not eating well, lethargic and weak for 2 weeks. ll1 Covid positive for 2 weeks. Denies N/V/D. + fever at home. ll1 09:43 09:37 BP 151 / ???; Pulse 49bpm; Resp 18bpm; Pulse Ox 99%; Temp 100.1F Axillary; 129.27 ll1 kg; Height 6 ft. 2 in.; BMI: 36.5; Pain 0/10; ll1 11:24 09:37 BP 150 / 53; Pulse 49bpm; Resp 18bpm; Pulse Ox 99%; Temp 100.1F Axillary; 129.27 ll1 kg; Height 6 ft. 2 in.; BMI: 36.5; Pain 0/10; ll1 12:32 12:31 Primary Nurse role handed off by Ten Guzman, SUNNY [place] [id number] 12:32 12:31 Carmen Calderon, SUNNY is Primary Nurse. [place] [id number] 12:32 12:00 IV Status: Completed infusion; IV Intake: 500ml [place] [id number]
--- NOTE | 2022-09-02 10:34 | EDPHYS ---
Physician Documentation [facility] Name: Carlos Osborne Age: 81 yrs Sex: Male : 1940 Arrival Date: 09/02/2022 Time: 09:37 Bed 6 Private MD: ED Physician Kings Ochoa HPI: 09/02 14:43 This 81 yrs old Male presents to ER via EMS with complaints of General Weakness. kdr 14:43 Patient's son reports that on 26 August the patient was diagnosed with COVID. Patient kdr has been weak and more lethargic over the last 2 weeks. Patient has not been eating or drinking well. Patient family also reports that he has had cellulitis of the right lower leg that seems to be getting worse. EMS on their initial encounter noted a blood pressure of 150/50 with a rate in the 40s to 50s. Temperature was 100.7 axillary EMS to give a 250 mL bolus prior to arrival. Initial oxygen saturation was 90% on room air and 100% on 2 L per nasal cannula patient was given 325 mg of Tylenol in route. While the patient appears somnolent, he does not appear to be in any acute distress. Onset: The symptoms/episode began/occurred gradually, 2 week(s) ago. Severity of symptoms: At their worst the symptoms were mild moderate just prior to arrival, in the emergency department the symptoms are unchanged. It is unknown whether or not the patient has had similar symptoms in the past. The patient has been recently seen by a physician: the patient's primary care provider. Historical: - Allergies: 09:37 No Known Drug Allergies; ll1 - Home Meds: 14:08 allopurinol 100 mg Oral tab [Active]; finasteride 5 mg Oral tab 1 tab once daily eh3 [Active]; furosemide 80 mg Oral tab 1 tab once daily [Active]; losartan 100 mg Oral tab 1 tab once daily [Active]; omeprazole 40 mg Oral cpDR 1 cap once daily [Active]; rosuvastatin 20 mg Oral tab 1 tab once daily [Active]; Xarelto 20 mg Oral tab 1 tab once daily [Active]; - PMHx: 09:37 Arthritis; Back pain; Hyperlipidemia; Hypertension; ll1 - Immunization history:: Client reports having NOT received the Covid vaccine. - Social history:: Smoking status: Patient denies any tobacco usage or history of. ROS: 14:43 Constitutional: Negative for weight loss, patient has had subjective fever Eyes: kdr Negative for injury, pain, redness, and discharge, Neck: Negative for injury, pain, and swelling, Cardiovascular: Negative for chest pain, palpitations, and edema, Respiratory: Negative for shortness of breath, cough, wheezing, and pleuritic chest pain, Abdomen/GI: Negative for abdominal pain, nausea, vomiting, diarrhea, and constipation, Back: Negative for injury and pain, MS/Extremity: Negative for injury and deformity, Psych: Negative for depression, anxiety, suicide ideation, homicidal ideation, and hallucinations, Allergy/Immunology: Negative for hives, rash, and allergies, Endocrine: Negative for neck swelling, polydipsia, polyuria, polyphagia, and marked weight changes, Hematologic/Lymphatic: Negative for swollen nodes, abnormal bleeding, and unusual bruising. 14:43 Skin: Positive for cellulitis, of the right leg, Negative for ecchymosis, jaundice. Exam: 14:43 Constitutional: This is a well developed, well nourished patient who is awake, alert, kdr and in no acute distress. Head/Face: Normocephalic, atraumatic. Eyes: Pupils equal round and reactive to light, extra-ocular motions intact. Lids and lashes normal. Conjunctiva and sclera are non-icteric and not injected. Cornea within normal limits. Periorbital areas with no swelling, redness, or edema. Neck: Trachea midline, no thyromegaly or masses palpated, and no cervical lymphadenopathy. Supple, full range of motion without nuchal rigidity, or vertebral point tenderness. No Meningismus. Chest/axilla: Normal chest wall appearance and motion. Nontender with no deformity. No lesions are appreciated. Cardiovascular: Regular rate and rhythm with a normal S1 and S2. No gallops, murmurs, or rubs. Normal PMI, no JVD. No pulse deficits. Respiratory: Lungs have equal breath sounds bilaterally, clear to auscultation and percussion. No rales, rhonchi or wheezes noted. No increased work of breathing, no retractions or nasal flaring. Abdomen/GI: Soft, non-tender, with normal bowel sounds. No distension or tympany. No guarding or rebound. No evidence of tenderness throughout. Back: No spinal tenderness. No costovertebral tenderness. Full range of motion. MS/ Extremity: Pulses equal, no cyanosis. Neurovascular intact. Full, normal range of motion. 14:43 Abdomen/GI: Inspection: obese Bowel sounds: active, Palpation: soft. 14:43 Skin: cellulitis, that is mild, confluent, patchy, on the lateral aspect of right calf. 14:43 Neuro: Orientation: to person, place, Mentation: responsive to voice able to follow commands, slow to respond, sleepy, somnolent, Motor: moves all fours. Vital Signs: 09:37 BP 150 / 53; Pulse 49; Resp 22; Temp 100.1(A); Pulse Ox 99% ; Weight 129.27 kg; Height ll1 6 ft. 2 in. (187.96 cm); Pain 0/10; 11:25 BP 131 / 42; Pulse 44; Resp 21; Pulse Ox 99% on 2 lpm NC; ll1 12:00 BP 111 / 40; Pulse 42; Resp 22; Pulse Ox 98% on 2 lpm NC; eh3 12:30 BP 141 / 51; Pulse 41; Resp 19; Pulse Ox 99% on 2 lpm NC; eh3 13:00 BP 139 / 45; Pulse 41; Resp 15; Pulse Ox 98% on 2 lpm NC; eh3 13:30 BP 142 / 46; Pulse 41; Resp 18; Pulse Ox 99% on 2 lpm NC; eh3 14:00 BP 126 / 47; Pulse 42; Resp 17; Pulse Ox 98% on 2 lpm NC; eh3 09:37 Body Mass Index 36.59 (129.27 kg, 187.96 cm) ll1 MDM: 10:34 Patient medically screened. kdr 14:43 Differential Diagnosis altered mental status, sepsis, flu. Data reviewed: vital signs, kdr nurses notes. Consideration of Admission/Observation Patient was admitted/placed on observation. Escalation of care including admission/observation considered. Management of patient was discussed with the following: Hospitalist: . I considered the following discharge prescriptions or medication management in the emergency department Medications were administered in the Emergency Department. See MAR. Test considered but Not performed: MRI: No need presently. 09/02 09:42 Order name: Basic Metabolic Panel; Complete Time: 10:35 kdr 09/02 09:42 Order name: CBC with Diff; Complete Time: 11:26 kdr 09/02 09:42 Order name: Troponin HS; Complete Time: 10:35 kdr 09/02 10:16 Order name: Manual Differential; Complete Time: 11:26 EDMS 09/02 10:37 Order name: Blood Culture Adult (2) kdr 09/02 10:37 Order name: Lactate w/ 2H reflex if indic.; Complete Time: 11:50 kdr 09/02 10:45 Order name: SARS-COV-2 Antigen Rapid; Complete Time: 11:50 bd 09/02 12:38 Order name: Csf Culture kdr 09/02 12:38 Order name: Fluid Cell Count,Body kdr 09/02 12:38 Order name: Spinal Fluid Profile kdr 09/02 13:08 Order name: Hemoglobin A1c EDMS 09/02 13:08 Order name: Lipid Profile EDMS 09/02 13:08 Order name: NT PRO-BNP EDMS 09/02 09:42 Order name: XRAY Chest (1 view); Complete Time: 11:26 kdr 09/02 10:38 Order name: Tib Fib Right XRAY; Complete Time: 11:26 kdr 09/02 13:05 Order name: LUMBAR SPINE PUNCTURE FLURO/CT EDMS 09/02 13:08 Order name: Troponin High Sensitivity EDMS 09/02 13:08 Order name: Troponin High Sensitivity EDMS 09/02 13:08 Order name: Troponin High Sensitivity EDMS 09/02 13:10 Order name: Creatine Phosphokinase EDMS 09/02 13:11 Order name: Magnesium EDMS 09/02 13:11 Order name: Phosphorus EDMS 09/02 13:11 Order name: T4 Free EDMS 09/02 13:11 Order name: Thyroid Stimulating Hormone EDMS 09/02 13:11 Order name: Urinalysis EDMS 09/02 13:11 Order name: Basic Metabolic Panel EDMS 09/02 13:11 Order name: Basic Metabolic Panel EDMS 09/02 13:11 Order name: CBC with Automated Diff EDMS 09/02 13:11 Order name: CBC with Automated Diff EDMS 09/02 09:42 Order name: EKG; Complete Time: 09:42 kdr 09/02 09:42 Order name: Cardiac monitoring; Complete Time: 09:43 kdr 09/02 09:42 Order name: EKG - Nurse/Tech; Complete Time: 09:59 kdr 09/02 09:42 Order name: IV Saline Lock; Complete Time: 09:43 kdr 09/02 09:42 Order name: Labs collected and sent; Complete Time: 10:00 kdr 09/02 09:42 Order name: O2 Per Protocol; Complete Time: 09:43 kdr 09/02 09:42 Order name: O2 Sat Monitoring; Complete Time: 09:43 kdr 09/02 12:38 Order name: Lumbar Puncture Consent; Complete Time: 12:55 kdr 09/02 13:10 Order name: CONS Physician Consult EDIN 09/02 13:10 Order name: Heart Healthy EDIN 09/02 13:13 Order name: Thorax Wo Con EDIN Administered Medications: 10:23 Drug: NS 0.9% 500 ml Route: IV; Rate: bolus; Site: right hand; ll1 11:05 Follow up: Response: No adverse reaction; IV Status: Completed infusion; IV Intake: ll1 1000ml 10:47 CANCELLED (Duplicate Order): foLIC Acid 1 mg PO once kdr 10:47 CANCELLED (Duplicate Order): Aspirin 81 mg PO once kdr 11:30 Drug: Rocephin - (cefTRIAXone) 1 grams Route: IVPB; Infused Over: 30 mins; Site: right ll1 hand; 12:00 Follow up: Response: No adverse reaction; IV Status: Completed infusion; IV Intake: [id number] Disposition Summary: 09/02/22 10:34 Hospitalization Ordered Hospitalization Status: Inpatient Admission kdr Provider: Darek Nievse kdr Location: Telemetry/MedSurg (Inpatient) kdr Condition: Fair kdr Problem: an ongoing problem kdr Symptoms: are unchanged kdr Bed/Room Type: Standard kdr Room Assignment: [facility](09/02/22 13:50) ss Diagnosis - Weakness kdr - Subsequent non-ST elevation (NSTEMI) myocardial infarction kdr Forms: - Medication Reconciliation Form kdr - SBAR form kdr Signatures: Dispatcher [employer] [facility] Kings Ochoa MD MD kdr Yuly Miner RN RN ss Ten Guzman RN RN ll1 Carmen Calderon RN RN eh3 Corrections: (The following items were deleted from the chart) 10:47 10:46 foLIC Acid 1 mg PO once ordered. kdr kdr 10:47 10:46 Aspirin 81 mg PO once ordered. kdr kdr 13:50 10:34 kdr ss 13:56 13:56 Misc. Order ordered. ss ss
[2022-09-02] MEDS ORDERED: CEFTRIAXONE 1000 MG/VIAL ONE (10:45)
--- NOTE | 2022-09-02 10:56 | RAD REPORT ---
EXAM DESCRIPTION: RAD - Chest Single View - 09/02/2022 10:26 am CLINICAL HISTORY: weakness, lethargy, recent positive COVID test COMPARISON: July 2017 two view exam TECHNIQUE: AP portable chest image was obtained 09/02/2022 10:26 am . FINDINGS: Lung volumes are low compared to prior study. No peripheral mass or consolidation. No sign ificant failure or volume overload suspected. No new hilar mass or lymphadenopathy identified compared to 2017. Cardiac silhouette is enlarged with out acute vascular engorgement. Trachea is in the midline. No measurable pleural effusion and no pneumothorax. No acute bony abnormality seen. No acute aortic findings suspected. IMPRESSION: No acute lung parenchymal process identifiable. Cardiomegaly without additional findings of acute failure or volume overload.
[2022-09-02 11:20] LABS: Anisocytosis SLIGHT; Blood Morphology Comment NOTED (NOT SEEN); Platelet Estimate DECR
--- NOTE | 2022-09-02 11:21 | RAD REPORT ---
EXAM DESCRIPTION: RAD - Tib Fib Right - 09/02/2022 11:08 am CLINICAL HISTORY: cellulitis COMPARISON: No comparisons FINDINGS: No fracture is identified. There is no dislocation or periosteal reaction noted. No acute or suspicious bony finding. Medial compartment narrowing with marginal bony spurring. There degenerat estefani changes at the tibiotalar joint space as well. Small Achilles spur is present. The plantar aspect of the calcaneus is not imaged. In the soft tissues there is no air or foreign body. No defined mass seen. Arterial calcifications ar e present. IMPRESSION: No air or foreign body in the soft tissues. No suspicious soft tissue finding identifiab le. Joint degenerative change present as detailed. No acute bone or joint finding.
[2022-09-02] MEDS ORDERED: NA CHLORIDE 0.9% 50 ML ONE (11:24)
[2022-09-02 11:40] LABS: SARS-CoV-2 Antigen Rapid Res Negative (Negative)
[2022-09-02] MEDS ORDERED: ACETAMINOPHEN 325 MG TABLET PO PRN (12:54)
[2022-09-02] MEDS ORDERED: ONDANSETRON 4 MG/2 ML VIAL IV PRN (13:08)
--- NOTE | 2022-09-02 13:14 | P.HP ---
Certification for Inpatient Patient admitted to: Inpatient With expected LOS: >2 Midnights Patient will require the following post-hospital care: None Practitioner: I am a practitioner with admitting privileges, knowledge of patient current condition, hospital course, and medical plan of care. Services: Services provided to patient in accordance with Admission requirements found in Title 42 Section 412.3 of the Code of Federal Regulations <Janileigh annSneha abdalla Ricardo - Last Filed: 09/02/22 15:20> Patient History Date of Service: 09/02/22 Reason for admission: Weakness, cough, fall History of Present Illness: Patient is an 81-year-old male with a past medical history significant for gout, BPH, GERD, atrial fibrillation, HLD, osteoarthritis, chronic back pain, hypertension who presents with complaint of generalized weakness, poor appetite and fall. Patient reported that he was diagnosed with COVID-19 infection 2 weeks ago. Patient indicated that he was given antibiotics by his PCP. Patient reported associated signs and symptoms of cough, chest congestion, fatigue, nausea, fever and diarrhea. Patient reported that he fell from bed today due to weakness. Patient denies hitting his head or losing consciousness. No other signs and symptoms reported. Symptoms are aggravated or relieved by nothing. Patient was brought to the hospital for medical evaluation. - Past Medical/Surgical History Diabetic: No -: BPH -: A-Fib -: HTN -: High Cholesterol -: gout -: Chronic back pain -: dyspepsia -: CRF -: Biliary Colic cholelithiasis w/o obstruction. Past Surgical History: Reviewed- Non-Contributory - Family History Father -: Heart disease, Lung disease, Stroke, Blood disorders Sister -: Stroke, Cancer Notes: Colon Cancer Brother -: Diabetes, Cancer - Social History Smoking Status: Never smoker Alcohol use: No CD- Drugs: No Caffeine use: Yes Place of Residence: Home <Sneha Nielsen - Last Filed: 09/02/22 15:20> Date of Service: 09/03/22 <Darek Nieves - Last Filed: 09/03/22 20:25> Allergies No Known Drug Allergies Allergy (Verified 07/10/14 15:15) Unknown Home Medications: Finasteride 5 tab PO DAILY 07/05/14 Furosemide 80 tab PO DAILY 07/05/14 Lisinopril 40 tab PO DAILY 07/05/14 Pantoprazole [Protonix Tab*] 40 mg PO DAILY 07/05/14 Rivaroxaban [Xarelto] 20 tab PO DAILY 07/05/14 Rosuvastatin Calcium [Crestor] 20 tab PO DAILY 07/05/14 Tamsulosin [Flomax] 0.4 mg PO DAILY 07/05/14 allopurinoL [Allopurinol] 300 tab PO DAILY 07/05/14 Amox/Clavulanate [Augmentin 875-125 Tab] 875 mg PO BID #12 tab 07/11/14 Review of Systems General: Fever, Weakness, Other (fatigue) Eyes: Unremarkable ENT: Unremarkable Respiratory: Cough, Other (Chest congestion ) Cardiovascular: Unremarkable Gastrointestinal: Nausea, Diarrhea Genitourinary: Unremarkable Musculoskeletal: Unremarkable Integumentary: Other (BLE redness ) <Sneha Nielsen - Last Filed: 09/02/22 15:20> Physical Examination - Physical Exam General: Alert, In no apparent distress, Oriented x3, Cooperative HEENT: Atraumatic, PERRLA, Mucous membr. moist/pink, EOMI, Sclerae nonicteric Neck: Supple, 2+ carotid pulse no bruit, No LAD, Without JVD or thyroid abnormality Respiratory: Diminished Cardiovascular: No edema, Normal S1 S2, Irregular heart rate/rhythm Capillary refill: <2 Seconds Gastrointestinal: Normal bowel sounds, Non-distended, No tenderness Musculoskeletal: Erythema, Tenderness Integumentary: No rashes, No breakdown, Erythema Neurological: Normal speech, Normal tone, Normal affect Lymphatics: No axilla or inguinal lymphadenopathy - Studies Laboratory Data (last 24 hrs) 09/02/22 09:55: WBC 11.30 H, Hgb 13.9, Hct 44.1, Plt Count 122 L 09/02/22 09:55: Sodium 138, Potassium 3.8, BUN 30 H, Creatinine 1.36 H, Glucose 109 H <Sneha Nielsen - Last Filed: 09/02/22 15:20> - Studies Microbiology Data (last 24 hrs): 09/02/22 09:55 Blood - Blood Blood Culture Gram Stain - Final <Darek Nieves - Last Filed: 09/03/22 20:25> Assessment and Plan - Plan --Pneumonia. COVID-19 test negative. Continue antibiotics and O2 therapy. Continue supportive care. --Elevated troponin. Cardiology consulted. Will trend troponin levels. Echocardiogram pending. Telemetry to monitor for any significant arrhythmia. Further management per clinical physician assistant. --Generalized weakness. Patient presents with poor appetite for the past couple of days. PT eval and treat. Continue supportive care. --Atrial fibrillation. Continue Xarelto. --Osteoarthritis\Chronic back pain. We will manage pain with current medication regimen. --Hyperlipidemia. Continue statin. --BPH. Continue home medications.- -- Hypertension. Poorly controlled. Patient placed on amlodipine and hydralazine as needed. -- Bilateral lower extremity cellulitis. Blood cultures pending. Continue antibiotics. --Diarrhea. Patient reported a one-time episode of diarrhea today. Continue supportive care. --Class II obesity. Likely secondary to excess calories intake and sedentary lifestyle. Patient counseled on weight reduction, diet and excise therapy. --GERD. Continue Protonix. --Suspected systolic or diastolic CHF. Echocardiogram pending for further assessment. Daily weight and strict I/O. Continue diuresis with Lasix. --CKD 3A. Baseline functions unknown. We will hold off on patient's REDDY inhibitor. Avoid nephrotoxins and NSAID. We will continue to monitor renal functions. --Thrombocytopenia. Unclear etiology. Continue supportive care. --DVT prophylaxis with Xarelto. Discharge Plan: Home Plan to discharge in: Greater than 2 days - Advance Directives Does patient have a Living Will: No Does patient have a Durable POA for Healthcare: No - Code Status/Comfort Care Code Status Assessed: Yes Physician Review: Patient Assessed, Agree with Above Assessment and Plan Critical Care: No <Sneha Nielsen - Last Filed: 09/02/22 15:20> Physician Review: Patient Assessed, Agree with Above Assessment and Plan <Darek Nieves - Last Filed: 09/03/22 20:25>
--- NOTE | 2022-09-02 13:44 | RAD REPORT ---
EXAM DESCRIPTION: CT - Thorax Wo Con - 09/02/2022 1:33 pm CLINICAL HISTORY: cough COMPARISON: none TECHNIQUE: Computed axial tomography of the chest was obtained. Contrast was not requested. All CT scans are performed using dose optimization technique as appropriate and may include automated exposure control or mA/KV adjustment according to patient size. FINDINGS: The evaluation of mediastinum, tea and vessels is limited secondary to lack of IV contras t administration. Mild ground-glass opacities within the left lung. Mild interstitial lung opacities lungs left greater than right. Minimal right basilar lung opacity The heart is moderately enlarged with minimal pericardial effusion. Coronary arterial calcifications. No mediastinal or hilar lymphadenopathy is seen. Small left pleural effusion Small to moderate hiatal hernia IMPRESSION: These findings probably indicating mild CHF. An atypical appearing Covid is probably less likely pneumonia
[2022-09-02] MEDS ORDERED: HYDRALAZINE HCL 20 MG/ML VIAL IV PRN (14:54)
[2022-09-02 15:13] VITALS: BMI 36.8
[2022-09-02] MEDS: ASPIRIN 81 MG CHEWABLE TABLET PO SCH (15:20)
[2022-09-02] MEDS: AZITHROMYCIN IV 500 MG in NA CHLORIDE 0.9% 250 ML IVPB SCH (15:20)
[2022-09-02 16:44] LABS: Magnesium 1.9 mg/dL (1.6-2.4); Thyroid Stimulating Hormone 1.55 uIU/mL (0.358-3.740)
[2022-09-03 03:42] LABS: Absolute Lymphocytes (CBC) 0.4 K/uL (0.7-4.9); Hematocrit 44.7 % (39.6-49.0); Lymphocytes % 4.5 % (15.3-44.8); MCV 86.8 fL (80-100); MPV 11.9 fL (7.6-11.3); RBC Red Blood Cell Count 5.15 M/uL (4.33-5.43)
[2022-09-03 03:52] LABS: Potassium 3.7 mmol/L (3.5-5.1)
[2022-09-03] MEDS: CEFTRIAXONE 1,000 MG in NA CHLORIDE 0.9% 50 ML IVPB SCH (08:17)
[2022-09-03] MEDS: AZITHROMYCIN IV 500 MG in NA CHLORIDE 0.9% 250 ML IVPB SCH (08:17)
[2022-09-03] MEDS: TAMSULOSIN 0.4 MG SR CAP PO SCH (08:18)
[2022-09-03] MEDS: PANTOPRAZOLE 40MG TABLET PO SCH (08:18)
[2022-09-03] MEDS: FINASTERIDE 5 MG TAB PO SCH (08:18)
[2022-09-03] MEDS: ROSUVASTATIN 10 MG TAB PO SCH (08:18)
[2022-09-03] MEDS: ASPIRIN 81 MG CHEWABLE TABLET PO SCH (08:19)
[2022-09-03] MEDS: FUROSEMIDE 40 MG TABLET PO SCH (08:19)
[2022-09-03] MEDS: RIVAROXABAN 20 MG TABLET PO SCH (08:20)
[2022-09-03] MEDS: allopurinoL 300 MG TAB PO SCH (08:20)
[2022-09-03] MEDS ORDERED: POTASSIUM CL SA 10 MEQ TAB PO ONE (09:00)
[2022-09-03] MEDS ORDERED: HOME MED 1 EA UNK (Lisinopril [Lisinopril] 40 MG Tablet) PO SCH (09:00)
[2022-09-03] MEDS ORDERED: AMLODIPINE 5 MG TAB PO SCH (09:00)
--- NOTE | 2022-09-03 19:54 | P.PN ---
Subjective Date of Service: 09/03/22 Chief Complaint: Weakness, cough, fall No acute events overnight. He reports that his weakness is gradually improving. His heart rate is gradually trending upwards, now in the low-50s. He denies any chest pain or palpitations. Review of Systems 10-point ROS is otherwise unremarkable General: Weakness (generalized) Physical Examination - Vital Signs Temperature: 98.6 F Blood Pressure: 150/66 Pulse: 52 Respirations: 17 Pulse Ox (%): 95 - Physical Exam General: Alert, In no apparent distress, Oriented x3 HEENT: Atraumatic, EOMI, Sclerae nonicteric Neck: JVD not distended Respiratory: Clear to auscultation bilaterally, Normal air movement Cardiovascular: No edema, Normal S1 S2, No gallops, No rubs, No murmurs, Other (bradycardic rate, regular rhythm) Gastrointestinal: Normal bowel sounds, Soft and benign, Non-distended, No tenderness, No rebound, No guarding Musculoskeletal: No clubbing Integumentary: No rashes Neurological: Normal speech, Normal affect - Studies Microbiology Data (last 24 hrs): 09/02/22 09:55 Blood - Blood Blood Culture Gram Stain - Final Assessment And Plan - Plan # Suspect Mild Acute on Chronic Decompensated Congestive Heart Failure with Unknown Ejection Fraction - Consult Cardiology and spoke with Dr. Tse - recommendations appreciated - Ordered transthoracic echocardiogram - Diuresis with furosemide - CT chest = "these findings probably indicating mild CHF. An atypical appearing Covid is probably less likely pneumonia." - NT-Pro BNP = 10,485 - Daily weights - Strict I/O - Cardiac diet, 1.5 L fluid restriction, 2 g Na restriction # Suspected Type II Non-ST Segment Elevation Myocardial Infarction (Demand Ischemia) due to above # Hypertension - Evaluation thus far: - EKG: without STEMI criteria, trend - Serial troponin: 99.8 -> 93.1 -> 85.2 - Ordered transthoracic echocardiogram - Chest x-ray = "no acute lung parenchymal process identifiable. Cardiomegaly without additional findings of acute failure or volume overload." - Management plan: - Consult Cardiology and spoke with Dr. Tse - recommendations appreciated - Continue aspirin, rosuvastatin - Hold beta-anabelle due to bradycardia - Start REDDY-inhibitor/ARB as tolerated # Symptomatic Bradycardia - suspect due to Metoprolol # Chronic Atrial Fibrillation - Consult Cardiology and spoke with Dr. Tse - recommendations appreciated - Hold metoprolol given bradycardia - Continue home rivaroxaban # Question of Pneumonia - Does not meet SIRS criteria - Suspicion for pneumonia is low, but will continue empiric ceftriaxone + azithromycin # Dyslipidemia - Continue home rosuvastatin # Gastroesophageal Reflux Disease - Continue home pantoprazole # Benign Prostatic Hyperplasia - Continue home tamsulosin, finasteride # Gout - Continue home allopurinol # Obesity - BMI 36.8 kg/m2 - Lifestyle modifications Darek Nieves M.D.
--- NOTE | 2022-09-03 20:02 | CON ---
Date of Consultation: 09/03/2022 Reason For Consultation: Elevated troponin. History Of Present Illness: This is an 81-year-old male with a past medical history of hypertension, enlarged prostate, dyslipidemia, and atrial fibrillation who presented with generalized weakness, lo w appetite, and falling. He had COVID infection about 2 weeks. The patient's appetite is low. No c ough at the present time. He had cough earlier with some nasal congestion and diarrhea that is impro ving. Denies having any other complaints. Specifically, no chest pain. Past Medical History: As outlined above in the HPI. Medications: Refer to reconciliation sheet for detailed list. Allergies: NO KNOWN DRUG ALLERGIES. Family History: No premature coronary artery disease or cancer. Social History: Does not smoke or drink. Does not use any drugs. Review of Systems: All systems reviewed and they were negative except for mentioned in HPI. Physical Examination: Vital Signs: Temperature is 98.6, pulse 52, breathing at 17, blood pressure is 150/66, and saturatin g 95% on room air. General: A pleasant elderly male, in no apparent distress. Head And Neck: Pupils are equal and reactive to light. Intact eye movements. No JVD. No cervical lymphadenopathy. Neck is supple. Thyroid is not enlarged. Lungs: Clear to auscultation bilaterally. No rhonchi, wheezing, or crackles. No accessory muscle u se. Heart: Regular. No extra sounds. Abdomen: Soft, nontender. Bowel sounds positive. No organomegaly. No masses or hernia. No rigidi ty or rebound. Extremities: No edema, clubbing, or cyanosis. Intact pulses. Skin: No rash. Neurologic: Alert, awake, and oriented x3. No acute focal deficits appreciated. Lymph Nodes: No cervical or axillary lymphadenopathy. Investigations: Troponin 93 then 85. BUN is 30, creatinine 1.22, and hemoglobin is 14.4. Assessment/recommendation: 1.Elevated troponin and there was no chest pain. He is status post recent fall. On echo, ejection fraction is normal and no wall motion abnormalities. Recommend outpatient Lexiscan nuclear stress te st. 2.Congestive heart failure that is chronic. Continue Lasix. 3.Atrial fibrillation, rate is controlled on Xarelto. Continue current management. SR/MODL Voice ID: [id number] Report ID: [id number]
[2022-09-04 06:40] LABS: Absolute Lymphocytes (CBC) 0.4 K/uL (0.7-4.9); Hematocrit 42.1 % (39.6-49.0); Lymphocytes % 5.1 % (15.3-44.8); MCV 86.4 fL (80-100); MPV 11.4 fL (7.6-11.3); RBC Red Blood Cell Count 4.87 M/uL (4.33-5.43)
--- NOTE | 2022-09-04 06:53 | ECHO ---
HEIGHT: 6 ft 2 in WEIGHT: 287 lb 0 oz DATE OF STUDY: 09/03/[address]: Sneha Nielsen 2-DIMENSIONAL: YES M.MODE: YES DOPPLER: YES COLOR FLOW: YES TDS: PORTABLE: YES DEFINITY: BUBBLE STUDY: DIAGNOSIS: ELEVATED TROPONIN, CONGESTIVE HEART FAILURE CARDIAC HISTORY: CATHERIZATION: SURGERY: PROSTHETIC VALVE: PACEMAKER: MEASUREMENTS (cm) DIASTOLIC (NORMALS) SYSTOLIC (NORMALS) IVSd 1.5 (0.6-1.2) LA Diam 4.4 (1.9-4.0) LVEF 60% LVIDd 4.9 (3.5-5.7) LVIDs 3.5 (2.0-3.5) %FS 28% LVPWd 1.5 (0.6-1.2) Ao Diam 3.7 (2.0-3.7) 2 DIMENSIONAL ASSESSMENT: RIGHT ATRIUM: NORMAL LEFT ATRIUM: ENLARGED RIGHT VENTRICLE: NORMAL LEFT VENTRICLE: NORMAL TRICUSPID VALVE: MILD TRICUSPID REGURGITATION MITRAL VALVE: MILD MITRAL REGURGITATION PULMONIC VALVE: NORMAL AORTIC VALVE: MILD AORTIC INSUFFICIENCY PERICARDIAL EFFUSION: SMALL AORTIC ROOT: NORMAL LEFT VENTRICULAR WALL MOTION: NORMAL DOPPLER/COLOR FLOW: SEE BELOW COMMENTS: 1. NORMAL LEFT VENTRICULAR EJECTION FRACTION 55-60% 2. NORMAL WALL MOTION 3. LEFT ATRIAL ENLARGEMENT 4. MILD MITRAL REGURGITATION, TRICUSPID REGURGITATION, AORTIC INSUFFICIENCY 5. SMALL POSTERIOR PERICARDIAL EFFUSION TECHNOLOGIST: MANPREET MENON
[2022-09-04 07:00] LABS: Potassium 3.6 mmol/L (3.5-5.1)
[2022-09-04] MEDS: ROSUVASTATIN 10 MG TAB PO SCH (08:21)
[2022-09-04] MEDS: CEFTRIAXONE 1,000 MG in NA CHLORIDE 0.9% 50 ML IVPB SCH (08:21)
[2022-09-04] MEDS: FINASTERIDE 5 MG TAB PO SCH (08:21)
[2022-09-04] MEDS: TAMSULOSIN 0.4 MG SR CAP PO SCH (08:22)
[2022-09-04] MEDS: FUROSEMIDE 40 MG TABLET PO SCH (08:22)
[2022-09-04] MEDS: ASPIRIN 81 MG CHEWABLE TABLET PO SCH (08:22)
[2022-09-04] MEDS: PANTOPRAZOLE 40MG TABLET PO SCH (08:22)
[2022-09-04] MEDS: allopurinoL 300 MG TAB PO SCH (08:22)
[2022-09-04] MEDS: RIVAROXABAN 20 MG TABLET PO SCH (08:22)
[2022-09-04] MEDS: AZITHROMYCIN IV 500 MG in NA CHLORIDE 0.9% 250 ML IVPB SCH (08:22)
[2022-09-04] MEDS ORDERED: POTASSIUM CL SA 10 MEQ TAB PO ONE (09:00)
[2022-09-04 09:17] VITALS: O2SAT 97
[2022-09-04] MEDS ORDERED: VANCOMYCIN 3 GM in NA CHLORIDE 0.9% 500 ML IVPB ONE (15:00)
[2022-09-04 16:49] LABS: Magnesium 1.8 mg/dL (1.6-2.4); Potassium 3.8 mmol/L (3.5-5.1)
[2022-09-04] MEDS ORDERED: ASPIRIN 325 MG TAB PO ONE ×3 (17:33→19:00)
[2022-09-04] MEDS ORDERED: ASPIRIN 81 MG CHEWABLE TABLET PO ONE (19:17)
--- NOTE | 2022-09-04 20:04 | P.DS ---
Admission Date: 09/02/22 Discharge Date: 09/04/22 Disposition: TRANSFER TO [facility] Discharge Condition: FAIR Reason for Admission: Weakness, cough, fall Consultations: 1. Cardiology Hospital Course: DIAGNOSES: # Suspect High-Grade Heart Block # Suspect Mild Acute on Chronic Decompensated Congestive Heart Failure with Preserved Ejection Fraction # Suspected Type II Non-ST Segment Elevation Myocardial Infarction (Demand Ischemia) due to above # 2/4 Blood Cultures Positive for Coagulase-Negative Staphylococcus # Hypertension # Chronic Atrial Fibrillation # Question of Pneumonia # Dyslipidemia # Gastroesophageal Reflux Disease # Benign Prostatic Hyperplasia # Gout # Obesity - BMI 36.8 kg/m2 HOSPITAL COURSE: Mr. Carlos Osborne is a pleasant 81 year old male with a past medical history significant for chronic diastolic congestive heart failure, hypertension, chronic atrial fibrillation, dyslipidemia, gastroesophageal reflux disease, benign prostatic hyperplasia and gout who was admitted to the [facility] on 09/02/2022 for generalized weakness and a fall. He was admitted to the Medicine service. His EKG was without STEMI criteria. His troponin trend was 99.8 -> 93.1 -> 85.2. His NT-Pro BNP was 10,485. His chest x-ray revealed, "no acute lung parenchymal process identifiable. Cardiomegaly wi thout additional findings of acute failure or volume overload." His CT chest revealed, "these findings probably indicating mild CHF. An atypical appearing Covid is probably less likely pneumonia." He was found to have bradycardia, which was initially thought to be secondary to his home metoprolol. His metoprolol was discontinued and he was started on furosemide. Over his hospital course, his symptoms improved and his heart rate gradually improved. 2/4 of his blood cultures would return positive for Coagulase-Negative Staphylococcus. He was started on empiric vancomycin and Dr. Tse was consulted. Per Dr. Tse, he did not feel that there were any signs for infective endocarditis on his transthoracic echocardiogram. Today, around 15:43, he developed 42 beats of nonsustained monomorphic ventricular tachycardia. STAT electrolytes and troponin were reassuring. EKG obtained post-arrhythmia was concerning for a high grade heart block. The telemetry strip and EKG were reviewed with Dr. Tse, who recommended transfer for Electrophysiology evaluation. Transfer was initiated and doc-to-doc was completed with Dr. Nirav Aparicio ([facility] Cardiology), who has generously accepted him for transfer. On 09/04/2022, he was seen on rounds and deemed medically stable for transfer. He was given the opportunity to ask questions and reported no further questions. Furthermore, all questions were answered to the best of my ability. A copy of this discharge summary will be sent to the above providers to facilitate continuity of care. Today, I personally spent 45 minutes with on his case, of which greater than 50% of the time was spent in patient education, counseling, and coordination of care as described above. - Physical Exam General: Alert, In no apparent distress, Oriented x3 HEENT: Atraumatic, EOMI, Sclerae nonicteric Neck: JVD not distended Respiratory: Clear to auscultation bilaterally, Normal air movement Cardiovascular: No edema, Normal S1 S2, No gallops, No rubs, No murmurs, Other (bradycardic rate, irregular rhythm) Gastrointestinal: Normal bowel sounds, Soft, Non-distended, No tenderness, No rebound, No guarding Musculoskeletal: No clubbing Integumentary: No rashes Neurological: Normal speech, Normal affect Vital Signs/Physical Exam: Temp Pulse Resp BP Pulse Ox 98 F 49 L 16 144/65 H 97 09/04/22 16:00 09/04/22 16:00 09/04/22 16:00 09/04/22 16:00 09/04/22 16:00 Laboratory Data at Discharge: WBC 7.60 K/uL (4.3-10.9) 09/04/22 06:09 Hgb 13.2 g/dL (13.6-17.9) L D 09/04/22 06:09 Hct 42.1 % (39.6-49.0) 09/04/22 06:09 Plt Count 134 K/uL (152-406) L 09/04/22 06:09 Sodium 142 mmol/L (136-145) 09/04/22 16:23 Potassium 3.8 mmol/L (3.5-5.1) 09/04/22 16:23 BUN 31 mg/dL (7-18) H 09/04/22 16:23 Creatinine 1.21 mg/dL (0.70-1.30) 09/04/22 16:23 Glucose 132 mg/dL (74-106) H 09/04/22 16:23 Phosphorus 3.0 mg/dL (2.5-4.9) 09/02/22 15:55 Magnesium 1.8 mg/dL (1.6-2.4) 09/04/22 16:23 Triglycerides 82 mg/dL (<150) 09/02/22 15:55 Cholesterol 58 mg/dL (<200) 09/02/22 15:55 HDL Cholesterol 17 mg/dL (40-60) L 09/02/22 15:55 Cholesterol/HDL Ratio 3.41 09/02/22 15:55 Home Medications: Finasteride 5 tab PO DAILY 07/05/14 Furosemide 80 tab PO DAILY 07/05/14 Lisinopril 40 tab PO DAILY 07/05/14 Pantoprazole [Protonix Tab*] 40 mg PO DAILY 07/05/14 Rivaroxaban [Xarelto] 20 tab PO DAILY 07/05/14 Rosuvastatin Calcium [Crestor] 20 tab PO DAILY 07/05/14 Tamsulosin [Flomax] 0.4 mg PO DAILY 07/05/14 allopurinoL [Allopurinol] 300 tab PO DAILY 07/05/14 Amox/Clavulanate [Augmentin 875-125 Tab] 875 mg PO BID #12 tab 07/11/14 Physician Discharge Instructions: 1. Continue Medical Management at [facility] Diet: AHA Activity: Fall precautions Followup: Beatriz Hare MD [Primary Care Provider] - Nirav Aparicio MD [OUTSIDE PHYSICIAN] - Time spent managing pt's care (in minutes): 45
--- NOTE | 2022-09-04 20:23 | PN ---
Date of Progress Note: 09/04/2022 Subjective: Seen by bedside, doing clinically well. Review of Systems: Does not have any chest pain, shortness of breath, orthopnea, cough, nausea, vomiting, or diarrhea. All other systems reviewed and they are negative. Physical Examination: Vital Signs: Reviewed. Head and Neck: Pupils are equal, reactive to light. Intact eye movements. No JVD. No cervical lym phadenopathy. Neck is supple. Thyroid is not enlarged. Lungs: Clear to auscultation bilaterally. No rhonchi, wheezing, or crackles. No accessory muscle u se. Heart: Irregular. No extra sounds. Abdomen: Soft, nontender. Bowel sounds positive. No organomegaly. No masses or hernia. No rigidi ty or rebound. Extremities: No clubbing, cyanosis. Intact pulses. Skin: No rashes. Neurologic: Alert, awake. No acute focal deficits appreciated. Investigations: BUN 32, creatinine 1.35. Assessment And Recommendations: 1.Elevated troponin. This is demand ischemia. Plan for outpatient stress test. 2.Chronic congestive heart failure. I will hold the Lasix as BUN and creatinine is going up and res tarted at a lower dose. 3.Bradycardia was on beta-anabelle. After discontinuation heart rate is coming up, blood pressure is good. No further workup is needed for this matter. /REBECAL Voice ID: [id number] Report ID: [id number]
[2022-09-04 20:35] VITALS: BP 158/71; TEMP 97.7
[2022-09-05] MEDS ORDERED: VANCOMYCIN 2 GM in NA CHLORIDE 0.9% 500 ML IVPB SCH (15:00)
--- NOTE | 2022-09-15 17:46 | EKG ---
Test Date: 2022-09-04 Test Time: 17:24:13 Shipping/Receiving Clerk: ANTHONY MEASUREMENT RESULTS: Intervals: Rate: 49 AL: QRSD: 152 QT: 490 QTc: 442 [place]: P: AL: QRS: 132 T: -32 INTERPRETIVE STATEMENTS: Junctional rhythm Right bundle branch block Left posterior fascicular block Bifascicular block Septal infarct, age undetermined T wave abnormality, consider inferior ischemia Abnormal ECG Electronically Signed On 09-15-22 17:28:05 HYDROGEN OPERATOR by Kiran Tse
--- NOTE | 2022-09-15 17:46 | EKG ---
Test Date: 2022-09-04 Test Time: 16:35:55 Leather Skinner: ELSY MEASUREMENT RESULTS: Intervals: Rate: 51 ME: QRSD: 162 QT: 500 QTc: 460 [place]: P: ME: QRS: -10 T: 91 INTERPRETIVE STATEMENTS: Atrial fibrillation with slow ventricular response with premature ventricular or aberrantly conducted complexes Left bundle branch block Abnormal ECG Compared to ECG 09/04/2022 16:34:59 Ventricular premature complex(es) now present Electronically Signed On 09-15-22 17:28:12 TERMINAL PRESS OPERATOR by Kiran Tse
--- NOTE | 2022-09-15 17:46 | EKG ---
Test Date: 2022-09-04 Test Time: 16:34:59 Clerk Operator: ELSY MEASUREMENT RESULTS: Intervals: Rate: 48 [place]: QRSD: 160 QT: 502 QTc: 448 [place]: P: VA: QRS: 3 T: 74 INTERPRETIVE STATEMENTS: Atrial fibrillation with slow ventricular response with a competing junctional pacemaker Left bundle branch block Abnormal ECG Compared to ECG 09/03/2022 10:23:22 Left bundle-branch block now present Uncertain supraventricular rhythm no longer present Myocardial infarct finding no longer present Electronically Signed On 09-15-22 17:28:15 DOCTOR PODIATRIC MEDICINE by Kiran Tse
--- NOTE | 2022-09-15 17:55 | EKG ---
Test Date: 2022-09-03 Test Time: 10:23:22 Sharepoint Trainer: BRADLEY MEASUREMENT RESULTS: Intervals: Rate: 48 VA: QRSD: 156 QT: 544 QTc: 485 [place]: P: VA: QRS: 109 T: -19 INTERPRETIVE STATEMENTS: Wide QRS rhythm Nonspecific intraventricular block Possible Lateral infarct, age undetermined Abnormal ECG Compared to ECG 09/02/2022 09:58:05 Myocardial infarct finding now present Left bundle-branch block no longer present Electronically Signed On 09-15-22 17:31:34 FRONT DESK MONITOR by Kiran Tse
--- NOTE | 2022-09-15 18:01 | EKG ---
Test Date: 2022-09-02 Test Time: 09:55:04 Cafeteria Aide: PORTILLO MEASUREMENT RESULTS: Intervals: Rate: 0 NE: QRSD: 0 QT: 0 QTc: 0 [place]: P: NE: QRS: 0 T: 0 INTERPRETIVE STATEMENTS: No QRS complexes found, no ECG analysis possible Electronically Signed On 09-15-22 17:34:09 WAX MACHINE OPERATOR by Kiran Tse
--- NOTE | 2022-09-15 18:01 | EKG ---
Test Date: 2022-09-02 Test Time: 09:58:05 Coater Hand: PORTILLO MEASUREMENT RESULTS: Intervals: Rate: 45 PA: QRSD: 164 QT: 520 QTc: 449 [place]: P: PA: QRS: -25 T: 154 INTERPRETIVE STATEMENTS: Wide QRS rhythm Left bundle branch block Abnormal ECG Compared to ECG 09/02/2022 09:55:04 Uncertain supraventricular rhythm now present Left bundle-branch block now present Electronically Signed On 09-15-22 17:34:03 JUICE STANDARDIZER by Kiran Tse
== END 2022-09-05 00:40 | disposition short-term general hospital (02) | DRG 280 ==
LOC: ER 09:29 → ERHOLD 12:47 → 4TH 14:06
PROVIDERS: ADMIT Internal Medicine; ATTEND Internal Medicine
DX: I13.0 Hypertensive heart and chronic kidney disease with heart failure and stage 1 through stage 4 chronic kidney disease, or unspecified chronic kidney disease (principal); I21.A1 Myocardial infarction type 2; I50.33 Acute on chronic diastolic (congestive) heart failure; L03.116 Cellulitis of left lower limb; L03.115 Cellulitis of right lower limb; I48.20 Chronic atrial fibrillation, unspecified; Z16.30 Resistance to unspecified antimicrobial drugs; N18.31 Chronic kidney disease, stage 3a; E78.5 Hyperlipidemia, unspecified; M10.9 Gout, unspecified; I48.91 Unspecified atrial fibrillation; N40.0 Benign prostatic hyperplasia without lower urinary tract symptoms; G89.29 Other chronic pain; M19.09 Primary osteoarthritis, other specified site; D69.6 Thrombocytopenia, unspecified; I45.5 Other specified heart block; K21.9 Gastro-esophageal reflux disease without esophagitis; E66.09 Other obesity due to excess calories; B95.7 Other staphylococcus as the cause of diseases classified elsewhere; R77.8 Other specified abnormalities of plasma proteins; R00.1 Bradycardia, unspecified; T44.7X5A Adverse effect of beta-adrenoreceptor antagonists, initial encounter; Z86.16 Personal history of COVID-19; Z68.36 Body mass index [BMI] 36.0-36.9, adult; Z79.01 Long term (current) use of anticoagulants; Z79.899 Other long term (current) drug therapy; Z28.310 Unvaccinated for COVID-19; Z20.822 Contact with and (suspected) exposure to COVID-19; W06.XXXA Fall from bed, initial encounter; Y92.9 Unspecified place or not applicable
CPT/HCPCS: 36415; 71045; 71250; 80048; 80061; 82550; 83036; 83605; 83735; 83880; 84100; 84439; 84443; 84484; 85025; 87040; 87077; 87186; 87205; 87804; 87811; 93005; 93306; 96361; 96365; 97110; 97161; 97165; 97530; 99285; J0456; J3370; J7040; J7050